=== PATIENT | female | born 1995 | race African-American/Black ===

== ENCOUNTER 2018-10-10 20:34 | Emergency (ER) | payer BC, OTHER ==
[~2018-10-10] VITALS: Ht 170.2 cm; Wt 61.7 kg
[~2018-10-10 20:34] MED LIST: FERR-43 PO; PRENATAL
[2018-10-11] MEDS ORDERED: ACETAMINOPHEN 325MG TABLET PO STA (00:04)
[2018-10-11] MEDS ORDERED: KETOROLAC 30MG/ML VIAL IV STA (00:04)
[2018-10-11] MEDS ORDERED: SODIUM CHLORIDE 0.9% 1,000 ML IV ONE (00:04)
[2018-10-11 00:26] LABS: HEMATOCRIT. 33.4 % (36.0-48.0); HEMOGLOBIN. 11.2 g/dL (12.0-16.0); MEAN CORPUSCULAR HEMOGLOBIN 28.2 pg (28.0-32.0); MEAN CORPUSCULAR VOLUME 84.1 fL (81.0-99.0); MEAN PLATELET VOLUME 9.4 fl (7.4-10.4); PLATELET 192 x1000/uL (130-400); RED BLOOD CELL COUNT 3.98 mill/uL (4.2-5.4); RED CELL DISTRIBUTION WIDTH 14.1 % (11.6-14.6)
[2018-10-11 00:27] LABS: CLARITY URINE TURBID (CLEAR); COLOR URINE YELLOW (YELLOW); KETONES URINE TRACE (NEGATIVE); LEUKOCYTE ESTERASE URINE 3+ (NEGATIVE); NITRITE URINE POSITIVE (NEGATIVE); OCCULT BLOOD URINE 2+ (NEGATIVE); PH URINE 5.5 (4.5-8.0); PROTEIN URINE 2+ (NEGATIVE); SPECIFIC GRAVITY URINE 1.019 (1.005-1.030)
[2018-10-11 00:33] LABS: CHLORIDE 104 mEq/L (98-107)
[2018-10-11] MEDS ORDERED: CEFTRIAXONE 1 G PREMIX 50 ML IV ONE (00:45)
[2018-10-11 02:22] VITALS: BP 121/82
[2018-10-11 02:27] LABS: PLATELET ESTIMATE NORMAL
== END 2018-10-11 02:24 | disposition home or self-care (01) ==
LOC: ER 20:34
DX: N39.0 Urinary tract infection, site not specified (principal)
CPT/HCPCS: 36415; 71045; 80053; 81003; 81025; 85025; 87077; 87086; 87186; 96365; 96375; 99284; J0696; J1885; J7030